=== PATIENT | male | born 1945 | race Caucasian/White ===

== ENCOUNTER 2021-11-27 05:37 | Inpatient (IN) | payer MEDICARE, BC ==
[~2021-11-27] VITALS: Ht 165.1 cm; Wt 95.0 kg
[~2021-11-27 05:37] MED LIST: AMLO1TAB48 PO; ASPI-955 PO; ATOR40TA PO; CAR2T PO; CARV80CP PO; FENO145T38 PO; FLO0.4C PO; GLUC1CAP33 PO; MULT-1179 PO; TICA90TA PO
[2021-11-27] MEDS ORDERED: nitroGLYCERIN 0.4mg SUBLingual tab SL PRN ×2 (06:20→13:00)
[2021-11-27] MEDS ORDERED: aspirin 81mg tab.chew PO ONE (06:20)
[2021-11-27 07:15] LABS: BASOPHILS # (AUTO) 0.1 X10'3 (0-0.2); BASOPHILS % (AUTO) 0.8 % (0-1); EOSINOPHILS # (AUTO) 0.4 X10'3 (0-0.9); EOSINOPHILS % (AUTO) 5.5 % (0-6); HEMATOCRIT 41.9 % (42.0-52.0); HEMOGLOBIN 14.1 g/dl (14.0-17.9); LYMPHOCYTES # (AUTO) 0.9 X10'3 (1.1-4.8); LYMPHOCYTES % (AUTO) 12.3 % (21-51); MEAN CORPUSCULAR HEMOGLOBIN 30.8 PG (27.0-31.0); MEAN CORPUSCULAR HGB CONC 33.6 g/dL (33.0-36.5); MEAN CORPUSCULAR VOLUME 91.4 FL (78-98); MEAN PLATELET VOLUME 9.3 FL (7.4-10.4); MONOCYTES # (AUTO) 0.7 X10'3 (0-0.9); MONOCYTES % (AUTO) 8.7 % (2-12); NEUTROPHILS # (AUTO) 5.6 X10'3 (1.8-7.7); NEUTROPHILS % (AUTO) 72.7 % (42-75); PLATELET COUNT 126 X10'3 (140-440); RED BLOOD COUNT 4.58 X10'6 (4.70-6.10); RED CELL DISTRIBUTION WIDTH 14.2 % (11.5-14.5); WHITE BLOOD COUNT 7.7 X10'3 (4.5-11.0)
[2021-11-27 07:53] LABS: ALANINE AMINOTRANSFERASE 22 U/L (12-78); ALBUMIN 3.5 G/DL (3.4-5.0); ALBUMIN/GLOBULIN RATIO 1.2 (1.1-1.5); ALKALINE PHOSPHATASE 75 IU/L (46-116); ASPARTATE AMINO TRANSFERASE 14 U/L (10-37); BILIRUBIN,TOTAL 0.6 MG/DL (0.1-1.0); BLOOD UREA NITROGEN 27 MG/DL (7-18); BUN/CREATININE RATIO 23.7 (5.4-32.0); CALCIUM 8.6 MG/DL (8.5-10.1); CHLORIDE 109 MMOL/L (99-107); CREATININE 1.14 MG/DL (0.60-1.10); GLUCOSE 162 MG/DL (70-104); POTASSIUM 4.2 MMOL/L (3.5-5.1); SODIUM 143 MMOL/L (135-145); TOTAL PROTEIN 6.4 G/DL (6.4-8.2); eGFR 62 ML/MIN
[2021-11-27 07:54] LABS: ANION GAP 10 (8-16); TOTAL CARBON DIOXIDE 23.8 MMOL/L (24-32)
[2021-11-27] MEDS ORDERED: CARV-50 PO ×2 (09:01)
[2021-11-27] MEDS ORDERED: MELA5TAB12 PO (09:01)
[2021-11-27] MEDS ORDERED: FURO-150 PO (09:01)
[2021-11-27] MEDS ORDERED: LACT1CAP65 PO (09:01)
[2021-11-27] MEDS ORDERED: APIX5TAB3 PO (09:01)
[2021-11-27] MEDS ORDERED: SACU1TAB4 PO (09:01)
--- NOTE | 2021-11-27 09:34 | NUR ---
pt in the room, left sided position,spouse at bedside.no reported chest pain.
[2021-11-27] MEDS ORDERED: potassium CL 10mEq/100ml bag 100 ML IV PRN (11:15)
[2021-11-27] MEDS ORDERED: morphine 2 MG/ML inj. syringe IV PRN ×2 (11:15)
[2021-11-27] MEDS ORDERED: HYDROcodone/acetaminophen 5mg/325mg tablet PO PRN (11:15)
[2021-11-27] MEDS ORDERED: mag hydrox/Alum hydrox/simeth 30ml oral suspension PO PRN (11:15)
[2021-11-27] MEDS ORDERED: magnesium 2GM in 50ml NS 50 ML IV PRN (11:15)
[2021-11-27] MEDS ORDERED: magnesium hydroxide 30ml (MOM) UD suspension PO PRN (11:15)
[2021-11-27] MEDS ORDERED: potassium Cl 20 mEq SR tablet PO PRN ×2 (11:15)
[2021-11-27] MEDS: furosemide 20 MG/2 ML vial IV SCH ×2 (11:15→20:39)
[2021-11-27] MEDS ORDERED: magnesium 4gm in 100ml NS 100 ML IV PRN (11:15)
[2021-11-27] MEDS ORDERED: magnesium Cl slow-release 64mg tablet PO PRN (11:15)
[2021-11-27] MEDS ORDERED: acetaminophen 325mg tablet PO PRN ×2 (11:15)
[2021-11-27] MEDS ORDERED: ondansetron/PF 4mg/2ml inj IV PRN (11:15)
[2021-11-27] MEDS ORDERED: CARV25TA56 PO (11:26)
[2021-11-27 11:33] LABS: MAGNESIUM 1.8 MG/DL (1.5-2.4)
[2021-11-27] MEDS: carVEDilol 12.5mg tablet PO SCH ×2 (12:56→20:19)
[2021-11-27] MEDS ORDERED: metoprolol tartrate 1mg/ml inj IV PRN (13:00)
[2021-11-27] MEDS ORDERED: aminophylline 250mg/10ml inj. IV PRN (13:00)
[2021-11-27] MEDS ORDERED: regadenoson 0.4mg/5ml syringe IV PRN (13:00)
[2021-11-27] MEDS: apixaban 5mg tablet PO SCH ×2 (13:48→20:40)
--- NOTE | 2021-11-27 19:14 | NUR ---
Pt pink, alert, no acute/resp distress. Eco at bedside performing procedure. PIV site c/d/i s complication or adverse reaction. Pt taking dinner tray after eco performed. Will continue to monitor for acute changes and needs. Pt on hospital bed versus ER bed.
[2021-11-27] MEDS: K and/or MAG REPLACEMENT MC SCH (19:27)
[2021-11-27] MEDS: SACUBITRIL PO SCH (20:00)
[2021-11-27] MEDS: VALSARTAN PO SCH (20:00)
[2021-11-27] MEDS ORDERED: non-formulary drug (Carvedilol 1 TAB) PO SCH (20:00)
[2021-11-27] MEDS: docusate sod 100mg capsule PO SCH (20:19)
[2021-11-27] MEDS: Melatonin 3mg tablet PO SCH (20:19)
[2021-11-27] MEDS: atorvastatin 20mg tablet PO SCH (20:39)
--- NOTE | 2021-11-27 20:54 | NUR ---
Pt pink, alert, no acute/resp distress. Pt ambulatory from bathroom no complications, adverse, or complication. Pt laying supine, bed in lowest position, wheels locked, Call ekssler in reach.
[2021-11-27] MEDS ORDERED: carVEDilol 12.5mg tablet PO SCH (21:00)
--- NOTE | 2021-11-27 22:33 | NUR ---
Pt ambulatory to bathroom. Pt pink alert, steady gait, no acute/resp distress. Denies chest pain.
[2021-11-28] VITALS (9 sets, daily range): BP systolic 125–177; BP diastolic 53–96
--- NOTE | 2021-11-28 00:35 | NUR ---
Pt laying supine, pink, no acute/resp distress. PIV site c/d/i s complication. Wheels locked, bed in lowest position, rails up. Call kessler in reach.
--- NOTE | 2021-11-28 03:26 | NUR ---
Pt pink, no acute/resp distress. PIV site c/d/i s complication. Bed in lowest position, wheels locked. Will continue to monitor pt for acute changes and needs.
--- NOTE | 2021-11-28 05:20 | NUR ---
Pt pink, alert, no acute/resp distress. Ambulatory to the bathroom s complication or adverse reaction. PIV site c/d/i s complication.
[2021-11-28] MEDS: SACUBITRIL PO SCH ×2 (08:00→20:00)
[2021-11-28] MEDS: VALSARTAN PO SCH ×2 (08:00→20:00)
[2021-11-28] MEDS: K and/or MAG REPLACEMENT MC SCH ×2 (08:00→20:00)
[2021-11-28 08:21] LABS: ALBUMIN 3.7 G/DL (3.4-5.0); ANION GAP 9 (8-16); BLOOD UREA NITROGEN 29 MG/DL (7-18); BUN/CREATININE RATIO 25.9 (5.4-32.0); CALCIUM 9.3 MG/DL (8.5-10.1); CHLORIDE 110 MMOL/L (99-107); CREATININE 1.12 MG/DL (0.60-1.10); GLUCOSE 146 MG/DL (70-104); MAGNESIUM 1.9 MG/DL (1.5-2.4); POTASSIUM 4.1 MMOL/L (3.5-5.1); SODIUM 148 MMOL/L (135-145); TOTAL CARBON DIOXIDE 29.1 MMOL/L (24-32); eGFR 63 ML/MIN
[2021-11-28 08:25] LABS: BASOPHILS # (AUTO) 0.1 X10'3 (0-0.2); BASOPHILS % (AUTO) 0.7 % (0-1); EOSINOPHILS # (AUTO) 0.4 X10'3 (0-0.9); EOSINOPHILS % (AUTO) 4.2 % (0-6); HEMATOCRIT 43.3 % (42.0-52.0); HEMOGLOBIN 14.4 g/dl (14.0-17.9); LYMPHOCYTES % (AUTO) 10.3 % (21-51); MEAN CORPUSCULAR HEMOGLOBIN 30.2 PG (27.0-31.0); MEAN CORPUSCULAR HGB CONC 33.3 g/dL (33.0-36.5); MEAN CORPUSCULAR VOLUME 90.7 FL (78-98); MEAN PLATELET VOLUME 8.9 FL (7.4-10.4); MONOCYTES # (AUTO) 0.9 X10'3 (0-0.9); MONOCYTES % (AUTO) 9.1 % (2-12); NEUTROPHILS # (AUTO) 7.2 X10'3 (1.8-7.7); NEUTROPHILS % (AUTO) 75.7 % (42-75); PLATELET COUNT 119 X10'3 (140-440); RED BLOOD COUNT 4.78 X10'6 (4.70-6.10); RED CELL DISTRIBUTION WIDTH 14.4 % (11.5-14.5); WHITE BLOOD COUNT 9.5 X10'3 (4.5-11.0)
[2021-11-28] MEDS: apixaban 5mg tablet PO SCH ×2 (08:25→20:41)
[2021-11-28] MEDS: aspirin 81mg, enteric-coated 1 TAB TABLET.DR PO SCH (08:25)
[2021-11-28] MEDS: lactobacillus rhamnosus 10,000 MMU CELLS/CAPSULE PO SCH (08:25)
[2021-11-28] MEDS: furosemide 20 MG/2 ML vial IV SCH ×2 (08:25→20:00)
[2021-11-28] MEDS: carVEDilol 12.5mg tablet PO SCH ×2 (08:25→20:41)
[2021-11-28] MEDS: multivitamins, therapeutics tablet PO SCH (08:25)
[2021-11-28] MEDS: docusate sod 100mg capsule PO SCH ×2 (08:25→20:00)
--- NOTE | 2021-11-28 14:48 | NUR ---
received report from omar schilling
--- NOTE | 2021-11-28 18:04 | NUR ---
gave report to heena monique rn
[2021-11-28] MEDS: atorvastatin 20mg tablet PO SCH (20:42)
[2021-11-28] MEDS: Melatonin 3mg tablet PO SCH (20:42)
--- NOTE | 2021-11-29 00:54 | NUR ---
reviewed and edited SRN assessment
[2021-11-29 02:00] VITALS: BP 113/66
[2021-11-29 06:00] VITALS: BP 142/80
--- NOTE | 2021-11-29 06:15 | NUR ---
Problems reprioritized. Patient report given , questions answered & plan of care reviewed with Demi SERVIN .
--- NOTE | 2021-11-29 06:20 | NUR ---
RECEIVED REPORT FROM HERMINIA Munoz RN
[2021-11-29 06:50] LABS: BASOPHILS % (AUTO) 0.5 % (0-1); EOSINOPHILS # (AUTO) 0.3 X10'3 (0-0.9); EOSINOPHILS % (AUTO) 3.8 % (0-6); HEMATOCRIT 42.9 % (42.0-52.0); HEMOGLOBIN 14.1 g/dl (14.0-17.9); LYMPHOCYTES % (AUTO) 10.8 % (21-51); MEAN CORPUSCULAR HEMOGLOBIN 29.8 PG (27.0-31.0); MEAN CORPUSCULAR HGB CONC 32.9 g/dL (33.0-36.5); MEAN CORPUSCULAR VOLUME 90.5 FL (78-98); MEAN PLATELET VOLUME 8.8 FL (7.4-10.4); MONOCYTES # (AUTO) 0.8 X10'3 (0-0.9); MONOCYTES % (AUTO) 9.4 % (2-12); NEUTROPHILS # (AUTO) 6.8 X10'3 (1.8-7.7); NEUTROPHILS % (AUTO) 75.5 % (42-75); PLATELET COUNT 120 X10'3 (140-440); RED BLOOD COUNT 4.74 X10'6 (4.70-6.10); RED CELL DISTRIBUTION WIDTH 14.4 % (11.5-14.5)
[2021-11-29] MEDS ORDERED: FURO-150 PO (06:56)
[2021-11-29 07:01] LABS: ALBUMIN 3.6 G/DL (3.4-5.0); ANION GAP 8 (8-16); BLOOD UREA NITROGEN 38 MG/DL (7-18); BUN/CREATININE RATIO 31.7 (5.4-32.0); CALCIUM 9.1 MG/DL (8.5-10.1); CHLORIDE 107 MMOL/L (99-107); GLUCOSE 133 MG/DL (70-104); MAGNESIUM 1.8 MG/DL (1.5-2.4); POTASSIUM 3.9 MMOL/L (3.5-5.1); SODIUM 145 MMOL/L (135-145); TOTAL CARBON DIOXIDE 30.2 MMOL/L (24-32); eGFR 59 ML/MIN
[2021-11-29] MEDS: SACUBITRIL PO SCH (07:06)
[2021-11-29] MEDS: VALSARTAN PO SCH (07:06)
[2021-11-29] MEDS: docusate sod 100mg capsule PO SCH (07:06)
[2021-11-29] MEDS: multivitamins, therapeutics tablet PO SCH (07:10)
[2021-11-29] MEDS: carVEDilol 12.5mg tablet PO SCH (07:10)
[2021-11-29] MEDS: lactobacillus rhamnosus 10,000 MMU CELLS/CAPSULE PO SCH (07:10)
[2021-11-29] MEDS: apixaban 5mg tablet PO SCH (07:11)
[2021-11-29] MEDS: aspirin 81mg, enteric-coated 1 TAB TABLET.DR PO SCH (07:11)
[2021-11-29] MEDS: furosemide 20 MG/2 ML vial IV SCH (07:12)
[2021-11-29] MEDS: K and/or MAG REPLACEMENT MC SCH (08:00)
--- NOTE | 2021-11-29 09:05 | NUR ---
pt d/c w/instructions, understanding of instructions and w/all belongings accompanied by in wheelchair to private vehicle to go home and f/u w/pcp
== END 2021-11-29 08:55 | disposition home or self-care (01) | DRG 291 ==
LOC: ER 05:39 → ED HOLD 11:14 → PCU 3S 11-28 14:53
PROVIDERS: ADMIT Internal Medicine; ATTEND Internal Medicine
PROC: 4A02XM4 Measurement of Cardiac Total Activity, External Approach (ICD-10-PCS; principal; 2021-11-28)
PROC: 3E033HZ Introduction of Radioactive Substance into Peripheral Vein, Percutaneous Approach (ICD-10-PCS; 2021-11-28)
DX: I13.0 Hypertensive heart and chronic kidney disease with heart failure and stage 1 through stage 4 chronic kidney disease, or unspecified chronic kidney disease (principal); I50.23 Acute on chronic systolic (congestive) heart failure; R07.89 Other chest pain; I42.9 Cardiomyopathy, unspecified; E78.5 Hyperlipidemia, unspecified; K21.9 Gastro-esophageal reflux disease without esophagitis; I27.20 Pulmonary hypertension, unspecified; I48.0 Paroxysmal atrial fibrillation; N18.9 Chronic kidney disease, unspecified; Z79.01 Long term (current) use of anticoagulants; Z79.82 Long term (current) use of aspirin; Z79.899 Other long term (current) drug therapy; Z95.1 Presence of aortocoronary bypass graft; Z95.5 Presence of coronary angioplasty implant and graft; Z95.810 Presence of automatic (implantable) cardiac defibrillator; Z88.2 Allergy status to sulfonamides; Z88.8 Allergy status to other drugs, medicaments and biological substances
CPT/HCPCS: 36415; 71045; 78452; 80048; 80053; 83735; 83880; 84484; 85025; 87081; 93005; 93017; 93306; 96374; 99285; A9500; G0378; J1940; J2785